=== PATIENT | male | born 1940 | race Caucasian/White ===

== ENCOUNTER 2024-11-20 07:44 | Outpatient (CLI) | payer MEDICARE | END 2024-11-20 07:45 | disposition home or self-care (01) | LOC: BICMRI 07:44 | PROVIDERS: ATTEND Family Medicine | DX: R41.3 Other amnesia (principal); M21.372 Foot drop, left foot; I67.82 Cerebral ischemia; R90.89 Other abnormal findings on diagnostic imaging of central nervous system; M47.816 Spondylosis without myelopathy or radiculopathy, lumbar region; M47.817 Spondylosis without myelopathy or radiculopathy, lumbosacral region; M47.815 Spondylosis without myelopathy or radiculopathy, thoracolumbar region | CPT/HCPCS: 70551; 72148 ==